=== PATIENT | male | born 1950 | race Caucasian/White ===

== ENCOUNTER 2016-09-11 12:51 | Observation (INO) | payer MEDICARE, BC ==
--- NOTE | ~2016-09-11 | EKG ---
PATIENT: CLAUDIA COY UNIT #: [id number] Ventricular Rate: 55 BPM Atrial Rate: 55 BPM P-R Interval: 268 ms QRS Duration: 92 ms Q-T Interval: 442 ms QTC Calculation(Bezet): 422 ms P Rochert: 41 degrees Calculated R Rochert: 0 degrees Calculated T Rochert: 58 degrees Diagnosis Line: Sinus bradycardia with 1st degree A-V block with Diagnosis Line: Premature atrial complexes Diagnosis Line: Low voltage QRS Diagnosis Line: Borderline ECG Diagnosis Line: When compared with ECG of 11-SEP-2016 13:57, Diagnosis Line: No significant change was found Diagnosis Line: Confirmed by JEANNETTE LIGHT MD ([id number]) on 09/11/2016 Diagnosis Line: 10:01:26 PM INTERPRETING MD: NADEGE RAMACHANDRAN
--- NOTE | ~2016-09-11 | EKG ---
PATIENT: CLAUDIA COY UNIT #: [id number] Ventricular Rate: 60 BPM Atrial Rate: 60 BPM P-R Interval: 252 ms QRS Duration: 88 ms Q-T Interval: 410 ms QTC Calculation(Bezet): 410 ms P Kenvir: 48 degrees Calculated R Kenvir: -10 degrees Calculated T Kenvir: 46 degrees Diagnosis Line: Sinus rhythm with 1st degree A-V block with Diagnosis Line: Premature supraventricular complexes Diagnosis Line: Otherwise normal ECG Diagnosis Line: When compared with ECG of 16-JUL-2016 07:49, Diagnosis Line: Criteria for Septal infarct are no longer Present Diagnosis Line: T wave inversion no longer evident in Lateral Diagnosis Line: leads Diagnosis Line: Confirmed by DEBRA ABDALLA MD ([id number]) on 09/11/2016 Diagnosis Line: 4:17:17 PM INTERPRETING MD: RM RAMACHANDRAN
--- NOTE | ~2016-09-11 | EKG ---
PATIENT: CLAUDIA COY UNIT #: [id number] Ventricular Rate: 59 BPM Atrial Rate: 59 BPM P-R Interval: 234 ms QRS Duration: 94 ms Q-T Interval: 438 ms QTC Calculation(Bezet): 433 ms P Lavina: 23 degrees Calculated R Lavina: -11 degrees Calculated T Lavina: 50 degrees Diagnosis Line: Sinus bradycardia with 1st degree A-V block Diagnosis Line: Incomplete right bundle branch block Diagnosis Line: Borderline ECG Diagnosis Line: When compared with ECG of 11-SEP-2016 16:32, Diagnosis Line: Premature atrial complexes are no longer Present Diagnosis Line: Confirmed by JEANNETTE LIGHT MD ([id number]) on 09/14/2016 Diagnosis Line: 7:35:04 AM INTERPRETING MD: NADEGE RAMACHANDRAN
--- NOTE | ~2016-09-11 | CO ---
Unit #: [id number] #: [id number] Patient: CLAUDIA COY [id number] [address] [place], [place] [address] [id number] I MR#: [id number] NAME: CLAUDIA COY. ROOM: 55 Age: 66 Sex: M Admission Date: 09/11/2016 : 1950 Attending Physician: Rg Mackey M.D. CONSULTATION REPORT HISTORY OF PRESENT ILLNESS The patient is a 66-year-old white male with history of chronic venous insufficiency, lumbar spinal stenosis, hypertension, BPH, GE reflux disease, hyperlipidemia, intolerant of treatment in the past, obstructive sleep apnea syndrome, intolerant to CPAP, recent onset exertional chest pain, placed on metoprolol for same with some improvement, but fatigue. Eventually, he was referred to Cardiology, underwent catheterization yesterday and found to have 100% LAD lesion just proximal to the first diagonal branch. He underwent angioplasty and was admitted postprocedure. Currently, he is awake, alert, and oriented x3, in no acute distress, has no complaints. No chest pain or shortness of air. Right wrist puncture wound looks without evidence of any complications. MEDICATIONS His medications prior to admission; metoprolol ER 25 mg daily, Protonix 40 mg daily, Zestril 40 mg daily, Flomax 0.4 mg b.i.d., Lortab 10/325 one q.8 hours p.r.n. for pain, flaxseed oil 1000 mg b.i.d., multivitamins one daily, vitamin C 500 mg daily, aspirin 81 mg daily, Aldactone 12.5 mg daily, and Lasix 20 mg daily. PAST SURGICAL HISTORY Lumbar diskectomy x2, ventral hernia repair for bowel obstruction. PAST MEDICAL HISTORY Hypertension, hyperlipidemia, lumbar spinal stenosis, BPH, GE reflux disease, obstructive sleep apnea syndrome, chronic venous insufficiency. SOCIAL HISTORY Employed. Nonsmoker. Nondrinker. . No street drug use. FAMILY HISTORY Noncontributory. PHYSICAL EXAMINATION GENERAL: He is awake, alert, and oriented x3, in no acute distress. VITAL SIGNS: Afebrile, pulse 59, respirations 19, blood pressure 138/73, room air O2 saturation 95%. HEENT: Unremarkable. NECK: Supple without JVD, bruits, adenopathy, or thyromegaly. CHEST: Clear to auscultation. HEART: Regular rate and rhythm without any murmurs, rubs, or gallops. ABDOMEN: Soft, nondistended, nontender with positive bowel sounds. No hepatosplenomegaly. EXTREMITIES: Showed no clubbing, cyanosis, or edema. Unit #: [id number] #: [id number] Patient: CLAUDIA COY AND RECTAL: Deferred. NEUROLOGIC: Grossly intact. DIAGNOSTIC STUDIES LABORATORY RESULTS: BMP within normal limits. CBC within normal limits. PT and PTT within normal limits. CARDIOVASCULAR STUDIES: EKG; sinus rhythm, first-degree AV block, PVCs or PACs. IMPRESSION 1. Coronary artery disease. 2. Status post percutaneous coronary intervention to left anterior descending. 3. Hypertension. 4. Hyperlipidemia. 5. Lumbar spinal stenosis. 6. Benign prostatic hyperplasia. 7. Gastroesophageal reflux disease. 8. Obstructive sleep apnea syndrome. 9. Chronic venous insufficiency. 10. Status post ventral hernia repair. 11. Status post lumbar diskectomy x2. PLAN The patient has been placed on aspirin, Brilinta, beta-blockers, and TATI inhibitors. Again, he has been intolerant of treatment for hyperlipidemia in the past. He may be a candidate for the new injectable hyperlipidemia medications. We will need to discussed this with Cardiology and the patient and obviously transfer this information to his insurance company for approval. Thank for the consultation. Dictated by... Ivan Hilton M.D. TERRIE/una TD: 09/13/2016 02:07 JOB #: [id number] CONSULTATION REPORT X Ivan Hilton MD X CONSULTATION REPORT
--- NOTE | ~2016-09-11 | DS ---
Unit #: [id number] #: [id number] Patient: CLAUDIA COY [id number] [address] [place], [place] [address] [id number] I MR#: [id number] NAME: CLAUDIA COY ROOM: 55 Age: 66 Sex: M Admission Date: 09/11/2016 : 1950 Discharge Date: 09/12/2016 Attending Physician: Rg Mackey M.D. Referring Physician: Rg Mackey M.D. DISCHARGE SUMMARY DISCHARGE DIAGNOSES 1. Unstable angina. 2. Status post cardiac catheterization on 09/11/[address] Mackey at [facility] that reveals the following results:. a. Left ventricular systolic function normal with ejection fraction of 60%. b. Left main normal. c. Left circumflex artery normal. d. Right coronary artery normal. e. Left anterior descending artery with 100% stenosis after the second diagonal branch with MERYL zero flow. 3. Status post angioplasty with drug-eluting stent to the mid left anterior descending artery chronic total occlusion. 4. Hypertension. 5. Former smoke. 6. Statin myopathy. DISCHARGE MEDICATIONS Plavix 75 mg daily, Flomax 0.4 mg b.i.d., furosemide 20 mg daily, lisinopril 40 mg daily, flaxseed oil 1000 mg b.i.d., multivitamin one tablet daily, aspirin 81 mg daily, hydrocodone/acetaminophen 10/325 q.8 hours, Aldactone 12.5 mg daily, metoprolol tartrate 25 mg daily, Protonix 40 mg daily, and vitamin C 500 mg daily. HOSPITAL COURSE This is a 66-year-old white male, who is admitted for cardiac catheterization. The patient presented to the office complaining of chest pain and dyspnea that occurs on exertion and at rest. Cardiac catheterization found the patient to have single-vessel coronary artery disease with 100% total occlusion to the mid LAD. For this reason, angioplasty with stent placement was recommended and the patient agreed. There was successful deployment of a 3.0 x 20 mm Synergy drug-eluting stent that was postdilated to 3.21 mm. The 100% stenosis was reduced to 0%. The patient did well in his postangioplasty recovery phase. He had no arrhythmias. He had no EKG changes. MB index was 2.8. He ambulated in the hallway without any symptoms. He was initially given Brilinta during the cardiac catheterization for anti-platelet therapy along with aspirin. The cost of Brilinta for the patient was 332 dollars and 45 cents. For this reason, the patient was transitioned to Plavix. He has not been on a cholesterol lowering agent because of a history of statin myopathy and intolerance. He is stable for discharge today. Unit #: [id number] #: [id number] Patient: CLAUDIA COY PHYSICAL EXAMINATION VITAL SIGNS: Blood pressure 138/73, heart rate 59, and temperature 97.7. CHEST: Clear to auscultation. HEART: S1 and S2. Heart sounds are normal. No murmurs, rubs, gallops, or clicks. Regular rate and rhythm. ABDOMEN: Soft and nontender with bowel sounds present. EXTREMITIES: Without leg edema. Right radial with 4+ pulse. There is no hematoma or bruising. DIAGNOSTIC STUDIES LABORATORY RESULTS: Glucose 100, BUN 16, creatinine 0.7, sodium 142, and potassium 4.4. LDL 140, cholesterol 199, triglycerides 116, and HDL 36. CARDIOVASCULAR STUDIES: EKG; sinus bradycardia, rate of 59 beats per minute, first-degree AV block, and incomplete right bundle-branch block. DISCHARGE INSTRUCTIONS 1. The patient will be discharged home today. 2. Follow up with Dr. Mackey on 10/22/2016 at 2:45 p.m. 3. Cardiac rehab saw the patient prior to discharge and information has been given. He is scheduled for an orientation on 09/16/2016 at [facility]. 4. Continue on dual antiplatelet therapy with aspirin and Plavix for at least one year. This has been discussed with the patient and and they understand. 5. No statin because of statin myopathy. 6. Continue beta-toña and TATI inhibitor. Dictated by... Nick Cheney A.P.R.N. for Emy Gibbons/una TD: 09/13/2016 14:12 JOB #: [id number] DISCHARGE SUMMARY X Nick Cheney APRN DISCHARGE SUMMARY
[~2016-09-11 12:51] MED LIST: ASPIRIN PO; ASPIRIN81 M1 PO; ASPIRIN81 MG PO; BUTCHERS BROOM; CALCIUM 500 + D1 TAB PO; CINNAMON ALPHA1 EACH PO; COENZYME Q10; E-400 C-500 & B1 TAB PO; FLAX SEED OIL1000 M1 PO; FLAX SEED OIL1000 MG PO; FLAXSEED OIL1000 M1 PO; FLOMAX0.4 M1 PO; GARLIC; HCTZ PO; HYDROCODON-ACE1 EAC4 PO; LAXATIVE OF CHOICE; LISINOPRIL PO; LORTAB 10-3251 EACH PO; LORTAB 10/500 T1 TAB PO; METOPROLOL ER PO; MULTI-VITAMIN1 TAB PO; MULTIVITAMINS W1 TAB PO; NORCO 5/325 TAB1 TAB PO; OMEGA 3 FISH OIL; PANTOPRAZOLE PO; PERCOCET PO; RED YEAST; SENIOR TABS1 EACH PO; VIT C PO; VITAMIN C500 M1 PO; [UNRECOGNIZED DRUG - OTHER]
[2016-09-11 13:24] LABS: HEMOGLOBIN 14.2 gm/dL (13.0-16.0); MEAN CELL VOLUME 89.6 FL (83-96); MEAN CORPUSCULAR HEMOGLOBIN 28.9 PG (28-34); MEAN CORPUSCULAR HGB CONC 32.3 g/dL (30-36); MEAN PLATELET VOLUME 8.5 FL (6.5-11.5); RED BLOOD COUNT 4.91 X10e (3.90-5.60); RED CELL DISTRIBUTION WIDTH 13.9 % (11.0-15.5); WHITE BLOOD COUNT 6.3 X10e3 (4.0-10.5)
[2016-09-11 13:34] LABS: PARTIAL THROMBOPLASTIN TIME 26.4 SECONDS (23.5-31.3); PROTHROMBIN TIME (PATIENT) 10.4 SECONDS (9.6-11.5)
[2016-09-11 13:41] LABS: BLOOD UREA NITROGEN 19 mg/dL (9-23); BUN/CREATININE RATIO 23.75; CALCIUM SERUM 9.1 mg/dL (8.4-10.2); CARBON DIOXIDE 29 mmol/L (22-31); CHLORIDE 106 mmol/L (100-111); CREATININE SERUM 0.8 mg/dL (0.6-1.4); GLOM FILT RATE Estimated ABOVE60 mL/min (>60); GLUCOSE FASTING 102 mg/dL (70-110); POTASSIUM 4.6 mmol/L (3.5-5.1); SODIUM 139 mmol/L (135-145)
[2016-09-11] MEDS ORDERED: LASIX20 MG PO (13:50)
[2016-09-11] MEDS ORDERED: ALDACTONE25 MG PO (13:50)
[2016-09-12 00:23] LABS: ANGIO %MB 2.8 % (0.0-4.0); ANGIO MB 4.5 ng/ml
[2016-09-12 06:37] LABS: BLOOD UREA NITROGEN 16 mg/dL (9-23); BUN/CREATININE RATIO 22.85; CALCIUM SERUM 9.7 mg/dL (8.4-10.2); CARBON DIOXIDE 29 mmol/L (22-31); CHLORIDE 103 mmol/L (100-111); CHOLESTEROL 199 mg/dL (0-200); CREATININE SERUM 0.7 mg/dL (0.6-1.4); GLOM FILT RATE Estimated ABOVE60 mL/min (>60); GLUCOSE FASTING 100 mg/dL (70-110); HDL CHOLESTEROL 36 mg/dL (29-75); LDL/HDL RATIO 4 RATIO (0-4); POTASSIUM 4.4 mmol/L (3.5-5.1); SODIUM 142 mmol/L (135-145); TRIGLYCERIDES 116 mg/dL (10-160)
[2016-09-12 06:39] LABS: LDL CHOLESTEROL 140 mg/dL (-130)
[2016-09-12 07:30] LABS: ANGIO %MB 2.8 % (0.0-4.0); ANGIO MB 4.6 ng/ml
[2016-09-12] MEDS ORDERED: LIPITOR40 MG PO (12:18)
[2016-09-12] MEDS ORDERED: CLOPIDOGREL75 MG PO (12:18)
[2017-02-11] MEDS ORDERED: PANTOPRAZOLE SO40 MG PO (07:30)
[2017-02-11] MEDS ORDERED: TOPROL XL 50 MG50 MG PO (07:30)
[2017-02-11] MEDS ORDERED: HYDROCODON-ACE1 EAC5 PO (07:30)
[2017-02-11] MEDS ORDERED: VITAMIN C500 MG PO (07:31)
[2017-02-11] MEDS ORDERED: FLAX SEED OIL1000 M2 PO (07:31)
[2017-02-11] MEDS ORDERED: MULTI-VITAMIN1 EAC1 PO (07:31)
== END 2016-09-12 17:19 | disposition home or self-care (01) ==
LOC: CCVL 12:51 → C5B 18:58
PROVIDERS: Internal Medicine Cardiovascular Disease
DX: I25.110 Atherosclerotic heart disease of native coronary artery with unstable angina pectoris (principal); I25.82 Chronic total occlusion of coronary artery; I10 Essential (primary) hypertension; G72.0 Drug-induced myopathy; T46.6X5A Adverse effect of antihyperlipidemic and antiarteriosclerotic drugs, initial encounter; E78.5 Hyperlipidemia, unspecified; M48.06 Spinal stenosis, lumbar region; N40.0 Benign prostatic hyperplasia without lower urinary tract symptoms; G47.33 Obstructive sleep apnea (adult) (pediatric); K21.9 Gastro-esophageal reflux disease without esophagitis; I87.2 Venous insufficiency (chronic) (peripheral); E66.9 Obesity, unspecified; R94.31 Abnormal electrocardiogram [ECG] [EKG]; R93.1 Abnormal findings on diagnostic imaging of heart and coronary circulation; Z95.5 Presence of coronary angioplasty implant and graft; Z87.891 Personal history of nicotine dependence; Z79.02 Long term (current) use of antithrombotics/antiplatelets; Z79.82 Long term (current) use of aspirin
CPT/HCPCS: 93458; C9600; 36415; 80048; 80061; 82550; 82553; 85027; 85347; 85610; 85730; 93005; C1725; C1769; C1874; C1887; C1894; G0378; J1644; J2250; J2370; J3010

== ENCOUNTER → 2017-01-22 | Outpatient (CLI) | payer MEDICARE, BC ==
[~2017-01-22] MED LIST changes: +ALDACTONE25 MG PO; +CLOPIDOGREL75 MG PO; +FLAX SEED OIL1000 M2 PO; +HYDROCODON-ACE1 EAC5 PO; +LASIX20 MG PO; +LIPITOR40 MG PO; +MULTI-VITAMIN1 EAC1 PO; +PANTOPRAZOLE SO40 MG PO; +TOPROL XL 50 MG50 MG PO; +VITAMIN C500 MG PO
--- NOTE | ~2017-01-22 | MR113 ---
[facility] A Service of [facility] & [facility] RADIOLOGY TEXT RESULTS PATIENT: CLAUDIA COY LOCATION: [facility] : 46 UNIT #: [id number] AGE: [address]: Ivan Hilton MD SEX: M ORDER DR: [id number] [facility] [address] [facility]. [place], [place] [address] [id number] MR#: [id number] Acc #: [id number] NAME: CLAUDIA COY : 1950 SEX: M STUDY DATE/TIME: 01/22/2017 11:17 UNIT: [facility] ROOM: STUDY DESCRIPTION: MR Lumbar Wo Contrast Attending Physician: Ivan Hilton M.D. Referring Physician: Ivan Hilton M.D. Ordering Physician: Ivan Hilton M.D. Primary Care Physician: Ivan Hilton M.D. MRI CENTER REPORT This report is preliminary unless electronic signature is present. EXAM Lumbar spine MRI without HISTORY Low back pain into right lower leg for 4-5 months. Pain to the left leg, ankle and foot with tingling from surgery, per patient. No surgery since the nineties. No known injury. Low back pain in 1989 and 1994. No history of cancer. TECHNIQUE MRI of the lumbar spine performed without contrast using routine 1.5-T imaging technique. COMPARISON STUDIES Prior studies are no longer available. FINDINGS There is exaggeration of lumbar lordosis. Subtle degenerative retrolisthesis noted of L1 on L2. There is multilevel intervertebral disc dessication, loss of intervertebral disc height and endplate spondylosis. Multilevel mild marrow endplate degenerative changes noted, which are mixed. The conus medullaris terminates at upper aspect of L1 and is normal. At T11-T12, there is moderate right, milder left-side facet degenerative change. There is a mild concentric disc bulge. There is no canal stenosis. There is mild foraminal narrowing on the right. At T12-L1, there is mild bilateral facet degenerative change. There is concentric disc bulging and endplate spondylosis. Mild effacement of the thecal sac but no significant central canal stenosis. Mild inferior foraminal narrowing on the right. [facility] A Service of [facility] RADIOLOGY TEXT RESULTS PATIENT: CLAUDIA COY LOCATION: [facility] : 48 UNIT #: [id number] AGE: [address]: Ivan Hilton MD SEX: M ORDER DR: At L1-L2, there is moderate facet degenerative change bilaterally with ligamentum flavum thickening. There is moderate concentric disc bulge with superimposed broad posterior protrusion/extrusion. The extruded disc material extends caudad from the disc level but remains contiguous with it. It extends into the bilateral foramina. There is approximately moderate central canal stenosis, mass effect on the bilateral lateral recesses, and vdgkuarb-il-xswzsn bilateral foraminal impingement. The retrolisthesis of L1 on L2 contributes to this. At L2-L3, there is nvdebcdc-lc-emxngi bilateral facet arthritis. There is concentric disc bulge with superimposed broad posterior protrusion/extrusion with a slightly more focal component right paramedian location. There is xgnb-dw-qlazvpdp central canal stenosis. There is mass effect on rsij-ovgpaww-pblz-right lateral recess. There is mild inferior foraminal narrowing bilaterally. At L3-L4, there is fairly severe bilateral facet arthritis with moderate ligamentum flavum thickening, worse to the right. There is concentric disc bulge with superimposed broad posterior protrusion/extrusion, more prominent in right paramedian location. The combination of findings results in ncgvkcju-gr-mctuwm central canal stenosis. There is mass effect upon loyak-vxoybaw-lxzg-left lateral recess. There is sqyg-hz-wqbnjjoo bilateral inferior foraminal narrowing. At L4-L5, there is severe facet arthritis bilaterally with moderate ligamentum flavum thickening. There is concentric disc bulge with superimposed broad posterior extrusion. The extruded disc material extends above and below the level of the disc, remaining contiguous with it, most prominent at midline. The combination of findings results in severe canal stenosis. The disc extrusion measures about 1.6 cm SI dimension x 0.8 cm AP dimension and it is about 1.3 cm in the ML dimension. There is mass effect on the bilateral lateral recesses and drlxwsxr-kh-anummu right, uddr-xe-wczveghj left-side foraminal narrowing. At L5-S1, there is moderate right, milder left-sided facet arthritis. Patient has had previous surgery with probable bilateral laminectomies. There is atrophy of the multifidus musculature. There is concentric disc bulging and posterior tissue contiguous with the disc, which could be protrusion/extrusion or granulation tissue at this postoperative level. There is mass effect on the kvro-ziinwzi-bzer-right lateral recess by this tissue and mild effacement of the anterior thecal sac. There is probably disc material extending into the left foramen with hlsp-wh-qgrvoiyj left and right foraminal narrowing. IMPRESSION 1. There is multilevel lumbar degenerative disease with details provided above. Canal stenosis is most severe at the level of L4-L5 but multiple level canal stenoses and foraminal compromise is present. [facility] A Service of [facility] RADIOLOGY TEXT RESULTS PATIENT: CLAUDIA COY LOCATION: [facility] : 48 UNIT #: [id number] AGE: [address]: Ivan Hilton MD SEX: M ORDER DR: See findings and correlate with symptoms. 2. Remote postoperative changes at the L5-S1 level. 3. There is some degenerative retrolisthesis of L1 on L2, which contributes to the canal and foraminal compromise at this level. Dictated by... Melanie Tellez M.D. THIS IS AN ELECTRONICALLY VERIFIED REPORT Melanie Tellez M.D. at 01/23/2017 10:45 AM SAC/pcl TD: 01/22/2017 21:44 JOB #: [id number] MRI CENTER REPORT Page 1 of 1 COPY
== END | disposition home or self-care (01) ==
LOC: CMRI 10:20
DX: M48.06 Spinal stenosis, lumbar region (principal); M51.36 Other intervertebral disc degeneration, lumbar region; M43.16 Spondylolisthesis, lumbar region; Z98.890 Other specified postprocedural states
CPT/HCPCS: 72148

== ENCOUNTER → 2017-02-11 | Day surgery (SDC) | payer MEDICARE, BC | END | disposition home or self-care (01) | LOC: CCSC 06:56 | DX: M54.9 Dorsalgia, unspecified (principal); Z53.9 Procedure and treatment not carried out, unspecified reason; Z79.82 Long term (current) use of aspirin; Z79.899 Other long term (current) drug therapy; Z79.02 Long term (current) use of antithrombotics/antiplatelets | CPT/HCPCS: J1040; J2250 ==